=== PATIENT | female | born 1940 | race Two or more races ===

== ENCOUNTER 2018-10-15 10:00 | Emergency (ER) | payer MEDICARE, OTHER, MEDICAID ==
[2018-10-15] MEDS: HYDROCODONE/APAP (5/325) TAB PO (11:00)
== END 2018-10-15 12:00 | disposition home or self-care (01) ==
LOC: FTE 10:00
DX: B02.9 Zoster without complications (principal); I10 Essential (primary) hypertension
CPT/HCPCS: 99283